=== PATIENT | male | born 1945 | race Two or more races ===

== ENCOUNTER 2022-09-11 10:15 | Inpatient (IN) | payer OTHER ==
[~2022-09-11] VITALS: Ht 170.2 cm; Wt 76.2 kg
[2022-09-11] MEDS ORDERED: NORVASC5 MG PO (13:16)
[2022-09-11] MEDS ORDERED: COZAAR100 MG PO (13:17)
[2022-09-11] MEDS ORDERED: LIPITOR20 MG PO (13:17)
[2022-09-18] MEDS ORDERED: OXYC1TAB9 PO (06:21)
[2022-09-18] MEDS ORDERED: INTEGRA PLUS C1 EACH PO (06:21)
[2022-09-18] MEDS ORDERED: BACTRIM DS TAB1 EACH PO (06:21)
[2022-09-18] MEDS ORDERED: XARELTO10 MG PO (06:21)
== END 2022-09-18 14:53 | DRG 470 ==
LOC: EDSTATUS 10:15 → ADM 10:15 → SURH 09-16 10:15 → O/R 09-16 10:21 → SURH 09-16 20:34
PROVIDERS: ADMIT Orthopaedic Surgery Sports Medicine; ATTEND Orthopaedic Surgery Sports Medicine
PROC: 0SRC0J9 Replacement of Right Knee Joint with Synthetic Substitute, Cemented, Open Approach (ICD-10-PCS; principal; 2022-09-16 17:30)
DX: M17.11 Unilateral primary osteoarthritis, right knee (principal); I10 Essential (primary) hypertension; Z96.651 Presence of right artificial knee joint; Z20.822 Contact with and (suspected) exposure to COVID-19